=== PATIENT | male | born 1955 | race Caucasian/White ===

== ENCOUNTER 2023-12-07 15:19 | Emergency (ER) | payer MEDICARE, BC, SELFPAY ==
[2023-12-07 15:21] VITALS: BP 174/107
[2023-12-07 15:44] LABS: % Basophils 1.2 % (0-2); % Eosinophils 1.4 % (0-6); % Immature Granulocytes 0.2 % (0-0.5); % Lymphocytes 20.2 % (20.5-51.1); % Monocytes 7.6 % (1.7-9.3); % Neutrophils 69.4 % (42.2-75.2); Absolute Basophils 0.1 10^3/uL (0-0.2); Absolute Eosinophils 0.1 10^3/uL (0-0.7); Absolute Monocytes 0.4 10^3/uL (0.1-0.6); Absolute Neutrophils 3.5 10^3/uL (1.4-6.5); Hematocrit 42.5 % (39.0-52.0); Hemoglobin 14.4 g/dL (13.0-18.0); Mean Corp Hgb Conc. 33.9 g/dL (33.0-37.0); Mean Corpuscular Hgb 29.3 pg (27.0-31.0); Mean Corpuscular Volume 86.6 fL (80.0-94.0); Mean Platelet Volume 9.5 fL (7.4-10.4); Nucleated Red Blood Cells % 0 % (-); Platelet Count 209 10^3/uL (130-400); Red Blood Cell Count 4.91 10^6/uL (4.70-6.10); Red Cell Dist. Width 12.2 % (11.5-14.5); White Blood Cell Count 5.1 10^3/uL (4.8-10.8)
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
[2023-12-07 16:00] LABS: ALT (SGPT) 18 U/L (0-50); AST (SGOT) 22 U/L (17-59); Albumin 4.3 g/dl (3.5-5.0); Alkaline Phosphatase 52 U/L (38-126); Blood Urea Nitrogen 16 mg/dl (9-20); Calcium 9.9 mg/dl (8.4-10.2); Carbon Dioxide 25 mmol/L (22-30); Chloride 106 mmol/L (98-107); Glucose 93 mg/dl (70-99); Potassium 4.2 mmol/L (3.5-5.1); Sodium 141 mmol/L (135-145); Total Bilirubin 0.8 mg/dl (0.2-1.3); Total Protein 6.8 g/dl (6.3-8.2)
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
[2023-12-07 17:56] LABS: Urine Albumin Negative (Neg - Trace); Urine Bilirubin Negative (Negative); Urine Character Clear (Clear); Urine Color Yellow; Urine Glucose Negative (Negative); Urine Ketone Negative (Negative); Urine Leukocyte Negative (Negative); Urine Nitrite Negative (Negative); Urine Occult Blood Negative (Negative); Urine Specific Gravity 1.015 (<1.030); Urine Urobilinogen Negative (Neg - 1+)
[2023-12-07 18:54] LABS: Lithium < 0.2 mmol/L (0.6-1.2)
[2023-12-07 20:26] VITALS: BP 193/102
[2023-12-07 23:27] VITALS: BP 203/126
[2023-12-08] MEDS: ESKALITH 300 MG PO (01:43)
[2023-12-08] MEDS: INDERAL LA 60 MG PO ×2 (01:44→09:48)
[2023-12-08] MEDS: SEROQUEL 25 MG PO (01:48)
[2023-12-08] MEDS: PAMELOR 20 MG PO ×2 (01:49→09:47)
[2023-12-08] MEDS: KLONOPIN 0.5 MG PO ×3 (01:55→14:26)
[2023-12-08 01:59] VITALS: BP 160/120
--- NOTE | 2023-12-08 07:30 | EDRN ---
Received patient sleeping on stretcher. Security with patient. In NAD.
[2023-12-08 09:44] VITALS: BMI 26.8
[2023-12-08 09:46] VITALS: BP 172/99
[2023-12-08] MEDS: ABILIFY 6 MG PO (09:48)
[2023-12-08] MEDS: EXELON PATCH 9.5 MG TRANSDERM (09:49)
[2023-12-08 10:19] LABS: COVID-19 Antigen Negative (Negative)
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
== END 2023-12-08 16:58 ==
LOC: EMR 15:19
PROVIDERS: Emergency Medicine; CONSULT PHYSICIAN Psychiatry & Neurology Psychiatry; EMERGENCY PHYSICIAN Emergency Medicine; FAMILY PHYSICIAN Internal Medicine
DX: G31.83 Neurocognitive disorder with Lewy bodies (principal); F02.811 Dementia in other diseases classified elsewhere, unspecified severity, with agitation; Z11.52 Encounter for screening for COVID-19
CPT/HCPCS: 99285; 70450; 71045; 80053; 80178; 81003; 85025; 87811; 93005

== ENCOUNTER → 2024-05-03 13:05 | Outpatient (REF) | payer MEDICARE, BC, SELFPAY ==
[2024-05-03 14:55] LABS: % Basophils 1.2 % (0-2); % Eosinophils 4.4 % (0-6); % Immature Granulocytes 0.3 % (0-0.5); % Lymphocytes 21.8 % (20.5-51.1); % Monocytes 8.6 % (1.7-9.3); % Neutrophils 63.7 % (42.2-75.2); Absolute Basophils 0.1 10^3/uL (0-0.2); Absolute Eosinophils 0.3 10^3/uL (0-0.7); Absolute Lymphocytes 1.5 10^3/uL (1.2-3.4); Absolute Monocytes 0.6 10^3/uL (0.1-0.6); Absolute Neutrophils 4.4 10^3/uL (1.4-6.5); Hematocrit 41.4 % (39.0-52.0); Mean Corp Hgb Conc. 33.8 g/dL (33.0-37.0); Mean Corpuscular Hgb 29.8 pg (27.0-31.0); Mean Corpuscular Volume 88.1 fL (80.0-94.0); Mean Platelet Volume 10.6 fL (7.4-10.4); Nucleated Red Blood Cells % 0 % (-); Platelet Count 261 10^3/uL (130-400); Red Cell Dist. Width 12.4 % (11.5-14.5); White Blood Cell Count 6.9 10^3/uL (4.8-10.8)
[2024-05-03 15:02] LABS: Urine Albumin Negative (Neg - Trace); Urine Bilirubin Negative (Negative); Urine Character Clear (Clear); Urine Color Yellow; Urine Glucose Negative (Negative); Urine Ketone Negative (Negative); Urine Leukocyte Negative (Negative); Urine Nitrite Negative (Negative); Urine Occult Blood Negative (Negative); Urine Specific Gravity 1.015 (<1.030); Urine Urobilinogen Negative (Neg - 1+)
[2024-05-03 15:27] LABS: Free T4 0.99 ng/dl (0.78-2.19)
[2024-05-03 15:39] LABS: Urine Protein 8 mg/dl (0-12)
[2024-05-03 15:40] LABS: TSH 2.15 uIU/ml (0.47-4.68)
[2024-05-03 15:57] LABS: Vitamin D, 25-OH*** 39.4 ng/mL (30-80)
[2024-05-03 16:15] LABS: Albumin 4.6 g/dl (3.5-5.0); Blood Urea Nitrogen 22 mg/dl (9-20); Calcium 10.1 mg/dl (8.4-10.2); Carbon Dioxide 22 mmol/L (22-30); Chloride 106 mmol/L (98-107); Glucose 87 mg/dl (70-99); HDL Cholesterol 52 mg/dl; LDL Cholesterol, Calculated 133 mg/dl; Phosphorus 3.4 mg/dl (2.5-4.5); Potassium 4.8 mmol/L (3.5-5.1); Sodium 137 mmol/L (135-145); Total Cholesterol 203 mg/dl (50-199); Triglyceride 91 mg/dl (10-149); Uric Acid 3.5 mg/dl (3.5-8.5); Very Low Density Lipoprotein 18 mg/dl (0-30); eGFR 54.07
== END ==
LOC: REG 13:05
PROVIDERS: ATTENDING PHYSICIAN Internal Medicine; FAMILY PHYSICIAN Internal Medicine
DX: G31.83 Neurocognitive disorder with Lewy bodies (principal); F02.A0 Dementia in other diseases classified elsewhere, mild, without behavioral disturbance, psychotic disturbance, mood disturbance, and anxiety; F31.31 Bipolar disorder, current episode depressed, mild; G20.C Parkinsonism, unspecified; F02.80 Dementia in other diseases classified elsewhere, unspecified severity, without behavioral disturbance, psychotic disturbance, mood disturbance, and anxiety; I10 Essential (primary) hypertension; E78.00 Pure hypercholesterolemia, unspecified; M10.9 Gout, unspecified; N18.32 Chronic kidney disease, stage 3b; N25.81 Secondary hyperparathyroidism of renal origin
CPT/HCPCS: 36415; 80061; 80069; 81003; 82306; 82570; 83970; 84156; 84439; 84443; 84550; 85025

== ENCOUNTER 2024-09-20 15:30 | Inpatient (IN) | payer MEDICARE, BC, SELFPAY ==
[2024-09-18 19:56] VITALS: BP 173/108; BMI 29.8
[2024-09-18 20:08] LABS: % Basophils 1.1 % (0-2); % Eosinophils 3.7 % (0-6); % Immature Granulocytes 0.3 % (0-0.5); % Lymphocytes 18.3 % (20.5-51.1); % Monocytes 8.1 % (1.7-9.3); % Neutrophils 68.5 % (42.2-75.2); Absolute Basophils 0.1 10^3/uL (0-0.2); Absolute Eosinophils 0.3 10^3/uL (0-0.7); Absolute Lymphocytes 1.4 10^3/uL (1.2-3.4); Absolute Monocytes 0.6 10^3/uL (0.1-0.6); Absolute Neutrophils 5.2 10^3/uL (1.4-6.5); Hematocrit 44.1 % (39.0-52.0); Hemoglobin 13.9 g/dL (13.0-18.0); Mean Corp Hgb Conc. 31.5 g/dL (33.0-37.0); Mean Corpuscular Hgb 29.6 pg (27.0-31.0); Mean Corpuscular Volume 93.8 fL (80.0-94.0); Nucleated Red Blood Cells % 0 % (-); Platelet Count 225 10^3/uL (130-400); White Blood Cell Count 7.6 10^3/uL (4.8-10.8)
[2024-09-18 20:27] LABS: ALT (SGPT) < 10 U/L (0-50); AST (SGOT) 22 U/L (17-59); Albumin 4.3 g/dl (3.5-5.0); Alkaline Phosphatase 59 U/L (38-126); Blood Urea Nitrogen 19 mg/dl (9-20); Calcium 9.8 mg/dl (8.4-10.2); Carbon Dioxide 25 mmol/L (22-30); Chloride 104 mmol/L (98-107); Estimated Creatinine Clearance 44 ml/min; Glucose 109 mg/dl (70-99); Potassium 4.4 mmol/L (3.5-5.1); Sodium 139 mmol/L (135-145); Total Bilirubin 0.5 mg/dl (0.2-1.3); Total Protein 6.9 g/dl (6.3-8.2); eGFR 45.78
--- NOTE | 2024-09-18 20:28 | ED.GENMED ---
History of Present Illness
General
Chief Complaint: Blood Pressure Problem
Time Seen by Provider: 09/18/24 20:06
History of Present Illness
History of Present Illness:
69-year-old male with history of Parkinson's, Lewy body dementia, high blood pressure presenting to the emergency department after a fall. Patient reports that he tripped on a carpet earlier today, fell, struck his head without loss of
consciousness. He is not on any blood thinners. His is a nurse, checked his blood pressure, noted that it was elevated and has been elevated for the past few days. He is on blood pressure medication. Denies any associated prodromal symptoms
prior to the fall such as chest pain, difficulty breathing, headache denies any present visual changes, weakness, numbness to his extremities. He was primarily concerned about his fall and head strike. No additional symptoms reported at this time
Past History
Past History
ED Past Medical History: Other (Lewey Body Dementia)
ED Past Surgical History: None
Phy Exam
Physical Exam
Physical Exam:
General: Well-appearing, no clinical signs of dehydration, nontoxic and in no acute distress
HEENT: protecting airway
Neck: appears supple, no midline tenderness
Head: atraumatic
CV: Normal heart rate, regular rhythm
Resp: No accessory muscle use, no increased work of breathing, lungs clear to auscultation bilaterally
Abd: Soft and non-distended, no tenderness to palpation
Extremities: No deformities, no swelling, no erythema
Neuro: alert, no focal neurologic deficit
: deferred
Rectal: deferred
Psych: Normal affect
Skin: Intact
Course
Orders/Labs/Results
Orders:
Orders
09/18/24 20:01
CBC/With Diff [Complete Blood Count/With Diff] Urgent
CMP [Comprehensive Metabolic Panel] Urgent
09/18/24 20:21
CT Head W/o Iv Contrast Urgent
Comment:
Reason For Exam: fall, HTN
09/18/24 20:26
Electrocardiogram (*1) Urgent
Reason for Study: Other
Other Reason for Exam: fall
EKG- Treatment ONCE
09/18/24 20:54
Urinalysis Reflex To Culture Urgent
Date Specimen was Collected: 09/18/24
Time Specimen was Collected: 20:49
Abnormal Lab Results
09/18/24
20:01
MCHC 31.5 L g/dL
(33.0-37.0)
Lymphocytes % 18.3 L %
(20.5-51.1)
Creatinine 1.6 H mg/dL
(0.7-1.3)
Glucose 109 H mg/dl
(70-99)
09/18/24 20:01
09/18/24 20:01
Vital Signs
Initial and Last Documented VS:
Initial Vital Signs
Temp Pulse Resp BP Pulse Ox
98.2 F 62 14 173/108 98
09/18/24 19:56 09/18/24 19:56 09/18/24 19:56 09/18/24 19:56 09/18/24 19:56
Last Documented Vital Signs
Temp Pulse Resp BP Pulse Ox
98.2 F 62 17 161/96 94
09/18/24 19:56 09/18/24 19:56 09/18/24 22:19 09/18/24 21:00 09/18/24 21:00
MDM/Problems Addressed
MDM/Problems Addressed:
69-year-old male with history of Lewy body dementia, hypertension, Parkinson's presenting after a fall with head strike. Vital signs on arrival significant for high blood pressure.
On exam patient is well-appearing, no acute distress or discomfort. He is currently asymptomatic. Regarding fall, appears mechanical in nature, notes that he tripped on a rug and has known history of Parkinson's. Regarding elevated blood
pressure, currently asymptomatic with lower suspicion for emergency. Plan for screening laboratory analysis and EKG. Given age, will also obtain CT brain due to head strike. Will continue to closely monitor.
23:50 -patient CT is negative. Labs are relatively unremarkable with exception of kidney dysfunction, however appears chronic. On reassessment of patient, notes that since the fall he has been unable to ambulate steadily. Call placed to ,
notes that he has been unsteady in the past several days, had a mild fall yesterday and then again today where he struck his head. She notes that he had something similar in February 2023, seen in the hospital, required physical therapy and skilled
nursing facility. She also notes that he recently saw his neurologist to upped his medications for Parkinson's due to increased tremors. At this time suspect that stones are secondary to decompensated Parkinson's disease. Tried to ambulate
patient, took 3 people to get him up. For this reason we will admit for PT/OT and potential placement
*Critical Care Note
Total Time (30-74mins, 75-104mins- exclusive of procedures): Not Applicable
ED Attending Note
-
Portions of this chart may have been created with voice recognition software.� Occasional wrong word or��sound alike� substitutions may have occurred due to the inherent limitations of voice recognition software.
Discharge Plan
Departure
Prescriptions:
No Action
quetiapine 25 mg Tablet
37.5 mg PO HS
propranolol 60 mg Capsule,Extended Release 24 Hr
60 mg PO DAILY
lithium carbonate 300 mg Capsule
300 mg PO DAILY
nortriptyline 10 mg Capsule
20 mg PO BID
carbidopa-levodopa 10-100 mg Tablet
1 tab PO DAILY
rivastigmine tartrate 3 mg Capsule
4.5 mg PO BID
aripiprazole 2 mg Tablet
4 mg PO DAILY
febuxostat 80 mg Tablet
80 mg PO DAILY
lacosamide 100 mg Tablet
100 mg PO DAILY
Referrals:
UNKNOWN - PT DOES,NOT KNOW [Family Provider] -
Interventions
Interventions:
*Risk Screen - Suicide Last Done: 09/18/24 19:56
*General Assessment Last Done: 09/18/24 19:56
*Neglect/Abuse Screening Last Done: 09/18/24 19:56
*ED COVID-19 Vaccine History Last Done: 09/18/24 19:56
ED- Cardiac Assessment Last Done: 09/18/24 20:00
ED- Neurological Assessment Last Done: 09/18/24 20:00
ED- Pulmonary Assessment Last Done: 09/18/24 20:00
Discharge Date and Time
Print Language: [place]
[2024-09-18 21:00] VITALS: BP 161/96
[2024-09-18 21:02] LABS: Urine Albumin Negative (Neg - Trace); Urine Bilirubin Negative (Negative); Urine Character Clear (Clear); Urine Color Yellow; Urine Glucose Negative (Negative); Urine Ketone Negative (Negative); Urine Leukocyte Negative (Negative); Urine Nitrite Negative (Negative); Urine Occult Blood Negative (Negative); Urine Specific Gravity 1.015 (<1.030); Urine Urobilinogen Negative (Neg - 1+); Urine pH 6.5 (5.0-9.0)
[2024-09-18 23:01] VITALS: BP 168/93
[2024-09-19] VITALS (23 sets, daily range): BP systolic 119–221; BP diastolic 75–121; PULSE 58–68; O2SAT 98; BMI 30.3; BMI 29.1
--- NOTE | 2024-09-19 00:41 | HPS.HSE ---
Family Physician
-
Family Physician: NOT KNOW UNKNOWN - PT DOES
Chief Complaint
-
Falls / Weakness
History of Present Illness
Patient is a 69y M with PMH significant for Lewy Body Dementia and Parkinsonism who presents to ED complaining of two falls in the past two days. Patient states that he had a fall yesterday and landed on a couch / ottoman with no significant
injury. He was able to get up afterwards and ambulated without difficulty. Today he was walking and he fell backwards - striking his head on the hardwood floor. He does not believe he lost consciousness. He was unable to get up unassisted. He
was assisted by family - but then remained unable to stand, bear weight or ambulate throughout the afternoon. He was brought to the ED for further evaluation and treatment.
Patient denies any prodrome of lightheadedness, dizziness, chest pain or dyspnea.
He denies any current pain / evident injury.
Patient and note that his rivastigmine dose was increased about 2 weeks ago - from 3mg BID to 4.5mg BID.
No other recent med changes or additions.
No recent symptoms of illness including cough, fevers, chills, etc.
Medical History
Past Medical History
Past Medical History: Reports Other
Additional Past Medical History:
Lewy Body Dementia with Behavioral Disturbance
Parkinsonism
Seizure Disorder
Past Surgical History: Reports Other
Additional Past Surgical History:
Lumbar Laminectomy
Achilles Repair
Social History
Tobacco: Non-smoker
Alcohol: None
Drug: None
Family History
Family History: Not pertinent
Allergies / Home Medications
Allergies reflects when Allergies were last updated in [facility].
Home Medications with original date entered in [facility]
Allergy/Medication List:
Allergies
Allergy/AdvReac Type Severity Reaction Status Date / Time
NKA - No Known Allergies Allergy Unknown Uncoded 08/02/21 16:47
Home Medications
aripiprazole 2 mg tablet 4 mg PO DAILY 09/18/24
carbidopa 10 mg-levodopa 100 mg tablet 1 tab PO HS 09/18/24
febuxostat 80 mg tablet 80 mg PO DAILY 09/18/24
lacosamide 100 mg tablet 100 mg PO DAILY 09/18/24
lithium carbonate 300 mg capsule 300 mg PO DAILY 09/18/24
nortriptyline 10 mg capsule 20 mg PO BID 09/18/24
propranolol 60 mg capsule,24 hr,extended release 60 mg PO DAILY 09/18/24
quetiapine 25 mg tablet 37.5 mg PO HS 09/18/24
rivastigmine tartrate 3 mg capsule 4.5 mg PO BID 09/18/24
Review of Systems
-
History Source: Patient
A 12 point ROS was completed and negative except as noted: Yes
Constitutional: Reports Fatigue; Denies Fever or Chills
Respiratory: Denies Cough or Trouble Breathing
Cardiac: Denies Chest Pain or Palpitations
Abdomen/GI: Denies Abdominal Pain, Nausea, Vomiting or Diarrhea
: Denies Dysuria, Frequency or Flank Pain
Musculoskeletal: Denies Joint Pain or Edema
Neurological: Reports Weakness; Denies Dizzy, Headache or Numbness
Psych: Denies Depression or Anxiety
Physical Exam
Vital Signs
Vital Signs
Temp Pulse Resp BP Pulse Ox
98.2 F 62 17 161/96 94
09/18/24 19:56 09/18/24 19:56 09/18/24 22:19 09/18/24 21:00 09/18/24 21:00
Physical Exam
General: Other (69y M in no acute distress.)
HEENT: Moist mucous membranes and PERRLA
Respiratory: Clear; No Wheezes, Rales or Rhonchi
Cardiac: S1/S2 and Regular Rhythm; No Murmur
GI: Soft, Non Tender, Non Distended and Normal Bowel Sounds
Musculoskeletal: No Clubbing, No Cyanosis and No Edema
Neuro: Awake, Alert and Nonfocal/grossly intact
Psych: No Agitated or Anxious
Laboratory Results
-
09/18/24 20:
09/18/24 20:
Laboratory Results
Total Bilirubin 0.5 mg/dl (0.2-1.3) 09/18/24 20:
AST 22 U/L (17-59) 09/18/24 20:
ALT < 10 U/L (0-50) 09/18/24 20:
Alkaline Phosphatase 59 U/L (38-126) 09/18/24 20:
Impression/Plan
-
A/P: Patient is a 69y M with PMH significant for Lewy Body Dementia and Parkinsonism who presents to ED for evaluation of ambulatory dysfunction / frequent falls.
Fall at Home x 2
Ambulatory Dysfunction
Parkinsonism
- Observe overnight for further evaluation and treatment.
- Continue current Parkinson's medications with no changes.
- PT / OT evaluations in the AM.
- Check orthostatic signs and encourage use of TEDs stockings, etc.
- Case Management eval for possible placement if necessary.
- Monitor for any new headache or evident neurologic changes and repeat MANAGED SERVICES SALES CONSULTANT imaging if needed.
Lewy Body Dementia with Behavioral Disturbance
- Stable. Patient calm, oriented and able to provide clear history at this time.
- Variable mood / mental state per .
- Continue current med regimen with no changes.
- Check lithium level.
- Follow for any acute delirium / agitation during hospital stay.
Seizure Disorder
- Had episode of seizure activity during [facility] hospitalization earlier this year.
- No similar episodes since.
- Continue current med regimen including lacosamide.
- Monitor for any changes / recurent seizures.
CKD III
- Stable. Renal function is at / near known baseline.
- Follow for any changes.
Benign Hypertension
- BP elevated today - at home and here in the ED.
- ? secondary to pain / anxiety related to falls.
- No EKG changes, proteinuria, chest pain, etc.
- Continue propranolol and adjust med regimen as needed for normotension.
DVT Prophylaxis: SCDs
Code Status: DNR
[2024-09-19 01:03] LABS: Lithium 0.6 mmol/L (0.6-1.2)
[2024-09-19 07:03] LABS: Hematocrit 39.5 % (39.0-52.0); Hemoglobin 12.8 g/dL (13.0-18.0); Mean Corp Hgb Conc. 32.4 g/dL (33.0-37.0); Mean Corpuscular Hgb 30.1 pg (27.0-31.0); Mean Corpuscular Volume 92.9 fL (80.0-94.0); Mean Platelet Volume 9.6 fL (7.4-10.4); Platelet Count 218 10^3/uL (130-400); Red Blood Cell Count 4.25 10^6/uL (4.70-6.10); White Blood Cell Count 7.9 10^3/uL (4.8-10.8)
[2024-09-19 07:33] LABS: Blood Urea Nitrogen 20 mg/dl (9-20); Calcium 9.4 mg/dl (8.4-10.2); Carbon Dioxide 26 mmol/L (22-30); Chloride 107 mmol/L (98-107); Estimated Creatinine Clearance 47 ml/min; Glucose 99 mg/dl (70-99); Potassium 4.4 mmol/L (3.5-5.1); Sodium 140 mmol/L (135-145); eGFR 49.47
[2024-09-19 08:04] LABS: TSH Reflex To Free T4 5.49 uIU/ml (0.47-4.68)
[2024-09-19] MEDS: ESKALITH REGULAR RELEASE 300 MG PO (08:05)
[2024-09-19] MEDS: ULORIC 80 MG PO (08:05)
[2024-09-19] MEDS: PAMELOR 20 MG PO ×2 (08:06→20:15)
[2024-09-19] MEDS: ABILIFY 4 MG PO (08:06)
[2024-09-19] MEDS: INDERAL LA PO (08:06)
[2024-09-19] MEDS: EXELON 4.5 MG PO ×2 (08:07→20:14)
[2024-09-19] MEDS: VIMPAT 100 MG PO (08:14)
[2024-09-19] MEDS: INDERAL LA 60 MG PO (09:30)
--- NOTE | 2024-09-19 09:57 | W.PN.HOSP.TC ---
Addendum entered and electronically signed by Koby Beltran MD 09/19/24 17:44:
updated over the phone today today
Original Note:
Today's Communication/Plan
-
PT OT eval
Assessment / Plan
Assessment / Plan
Physical exam:
General: Acute on chronically ill
HEENT: Normocephalic, Atraumatic and Moist Mucous Membranes
Respiratory: Clear to Auscultation; Negative Wheezes, Rales or Rhonchi
Cardiac: Regular Rhythm and S1/S2
GI: Soft, Nontender and Nondistended
Musculoskeletal: No Clubbing, No Cyanosis and No Edema
Neuro: Awake, Alert and Oriented, generalized weakness
Psych: Calm
A/P:
Fall at Home x 2
Ambulatory Dysfunction
Parkinsonism
- Observe overnight for further evaluation and treatment.
- Continue current Parkinson's medications with no changes.
- PT / OT evaluations in the AM.
- Check orthostatic signs and encourage use of TEDs stockings, etc.
- Case Management eval for possible placement if necessary.
- Monitor for any new headache or evident neurologic changes and repeat AGRICULTURE CONSULTANT imaging if needed.
Lewy Body Dementia with Behavioral Disturbance
- Stable. Patient calm, oriented and able to provide clear history at this time.
- Variable mood / mental state per .
- Continue current med regimen with no changes.
- Check lithium level.
- Follow for any acute delirium / agitation during hospital stay.
Seizure Disorder
- Had episode of seizure activity during [facility] hospitalization earlier this year.
- No similar episodes since.
- Continue current med regimen including lacosamide.
- Monitor for any changes / recurent seizures.
CKD III
- Stable. Renal function is at / near known baseline.
- Follow for any changes.
Benign Hypertension
- BP elevated today - at home and here in the ED.
- ? secondary to pain / anxiety related to falls.
- No EKG changes, proteinuria, chest pain, etc.
- Continue propranolol and adjust med regimen as needed for normotension.
-Add IV hydralazine as needed
DVT Prophylaxis: SCDs
Code Status: DNR
Anticipated Discharge: 24 - 48 hours
Subjective/Interval History
-
Date of Service: September 19, 2024
Patient feels well overall.
Objective Data
-
Labs:
Laboratory Results
09/19/24
06:41
WBC 7.9
Hgb 12.8 L
Hct 39.5
Plt Count 218
Sodium 140
Potassium 4.4
Chloride 107
Carbon Dioxide 26
BUN 20
Creatinine 1.5 H
Glucose 99
Calcium 9.4
Vital Signs:
Vital Signs
Temp Pulse Resp BP Pulse Ox
98.1 F 65 14 184/99 94
09/19/24 04:00 09/19/24 09:30 09/19/24 07:15 09/19/24 09:30 09/19/24 01:15
[2024-09-19] MEDS: APRESOLINE 10 MG IV ×2 (13:05→20:17)
--- NOTE | 2024-09-19 13:26 | PTCARENOTE ---
Pt pleasant, calm and cooperative. AOx3. Denies pain. # 25cc in place for stress incontinence. NSR on monitor. BP trended high throughout morning despite 60mg PO Propranolol. Dr Beltran notified BP 195/104 hr 55. 10mg IV Hydralazine given. Repeat now
165/100 hr 70's. Pt to go to room 317-2. Report sent.
[2024-09-19] MEDS: REFRESH CELLUVISC GEL 1 DROPS OPHTH (14:47)
--- NOTE | 2024-09-19 18:38 | PTCARENOTE ---
pt pulled over from ED stretcher. AAOx3 but hx demetia. VSS. Condom cath in place. Pt had episode of confusion about catheter and attempting to get out of bed to urinate. Pt getting agitated with at family members at bedside. Able to redirect and
clean up pt. Bed alarm put in place. Call bed in reach and pt near nurses station. Will continue to monitor pt.
[2024-09-19] MEDS: TYLENOL 650 MG PO (22:09)
--- NOTE | 2024-09-19 23:12 | W.PN.UPDATE ---
Update Note
Progress Note Update
-Reported by the nursing staff that that patient has new onset of headache with 2 episodes of nausea and vomiting. Patient had fall prior admission and reported hitting of his head. Head CT was Neg on admission.
-On assessment patient is alert and oriented x 3, reported headache that new to him 9/10 of pain scale. Patient received Tylenol earlier that was not effective. Patient denies dizziness or blurred of vision. No changes in neuro exam.
-Will repeat head CT and continue with neuro check, and antiemetics as needed.
-Head CT result with no acute intracranial changes and no significant changes.
--- NOTE | 2024-09-19 23:14 | PTCARENOTE ---
2030 pt's b/p 178/104, 10mg hydralazine given
--- NOTE | 2024-09-19 23:15 | PTCARENOTE ---
1015 pt vomited, c/o FARAH 02/27, B/P 155/88 hr 60's. CONVENTIONS ASSISTANT notified, tylenol given
--- NOTE | 2024-09-19 23:16 | PTCARENOTE ---
224 pt vomited 2 more times, c/o [place] is now 8-9/10. PROCESS DEVELOPMENT MANAGER notified and came to evaluate pt. CT of head ordered, vs remain 150's/80's hr 60's
[2024-09-20] MEDS: ZOFRAN 4 MG IV (00:49)
[2024-09-20] MEDS: COLACE 100 MG PO (00:50)
[2024-09-20] MEDS: SEROQUEL 37.5 MG PO ×2 (00:51→21:42)
[2024-09-20] MEDS: SINEMET 10-100 1 TABLET PO ×2 (00:51→21:52)
[2024-09-20 03:30] VITALS: BP 143/86
[2024-09-20 06:42] LABS: % Basophils 0.7 % (0-2); % Eosinophils 1.3 % (0-6); % Immature Granulocytes 0.2 % (0-0.5); % Lymphocytes 11.1 % (20.5-51.1); % Monocytes 6.4 % (1.7-9.3); % Neutrophils 80.3 % (42.2-75.2); Absolute Basophils 0.1 10^3/uL (0-0.2); Absolute Eosinophils 0.1 10^3/uL (0-0.7); Absolute Lymphocytes 1.1 10^3/uL (1.2-3.4); Absolute Monocytes 0.6 10^3/uL (0.1-0.6); Absolute Neutrophils 7.9 10^3/uL (1.4-6.5); Hematocrit 41.3 % (39.0-52.0); Hemoglobin 13.6 g/dL (13.0-18.0); Mean Corp Hgb Conc. 32.9 g/dL (33.0-37.0); Mean Corpuscular Hgb 29.8 pg (27.0-31.0); Mean Corpuscular Volume 90.4 fL (80.0-94.0); Mean Platelet Volume 9.4 fL (7.4-10.4); Nucleated Red Blood Cells % 0 % (-); Platelet Count 234 10^3/uL (130-400); Red Blood Cell Count 4.57 10^6/uL (4.70-6.10); Red Cell Dist. Width 12.9 % (11.5-14.5); White Blood Cell Count 9.8 10^3/uL (4.8-10.8)
[2024-09-20 07:00] VITALS: BP 154/90
[2024-09-20 07:07] LABS: Blood Urea Nitrogen 20 mg/dl (9-20); Calcium 9.5 mg/dl (8.4-10.2); Carbon Dioxide 27 mmol/L (22-30); Chloride 104 mmol/L (98-107); Estimated Creatinine Clearance 45 ml/min; Glucose 107 mg/dl (70-99); Potassium 4.6 mmol/L (3.5-5.1); Sodium 138 mmol/L (135-145); eGFR 53.74
[2024-09-20] MEDS: ULORIC 80 MG PO (09:08)
[2024-09-20] MEDS: VIMPAT 100 MG PO (09:09)
[2024-09-20] MEDS: INDERAL LA 60 MG PO (09:09)
[2024-09-20] MEDS: ABILIFY 4 MG PO (09:15)
[2024-09-20] MEDS: ESKALITH REGULAR RELEASE 300 MG PO (09:15)
[2024-09-20] MEDS: PAMELOR 20 MG PO ×2 (09:16→20:33)
--- NOTE | 2024-09-20 09:49 | W.PN.HOSP.TC ---
Today's Communication/Plan
-
MRI of the head and cervical spine today. Neurosurgery consult.
Assessment / Plan
Assessment / Plan
Physical exam:
General: Acute on chronically ill
HEENT: Normocephalic, Atraumatic and Moist Mucous Membranes
Respiratory: Clear to Auscultation; Negative Wheezes, Rales or Rhonchi
Cardiac: Regular Rhythm and S1/S2
GI: Soft, Nontender and Nondistended
Musculoskeletal: No Clubbing, No Cyanosis and No Edema
Neuro: Awake, Alert and Oriented, generalized weakness with more pronounced lower extremity weakness.
Psych: Calm
A/P:
Lower extremity weakness and multiple falls:
Obtained MRI of cervical spine today--> consistent with moderate to severe cervical canal stenosis
Obtained MRI of the head today--> no evidence of stroke or any acute abnormality
Neurosurgery consulted-discussed with neurosurgery via [place] text today and they will see patient tomorrow
PT OT
Discussed with over the phone yesterday
Nausea and vomiting:
Resolving
Lewy bodies dementia with behavioral disturbances/parkinsonism/seizure disorder:
Continue lithium 300 mg p.o. daily, nortriptyline 20 mg p.o. twice a day, Seroquel 37.5 mg p.o. nightly, rivastigmine 4.5 mg p.o. twice a day, Abilify 5 mg p.o. daily, Vimpat 100 mg p.o. daily, carbidopa/levodopa 10/100 1 tab p.o. nightly.
[place] level 0.6 on 09/18
CKD stage III:
Avoid nephrotoxic
Renally dose medication
Check renal function in a.m.
Hypertension:
Continue propranolol 60 mg p.o. daily
Added IV hydralazine as needed
Monitor blood pressure adjust medications accordingly
DVT prophylaxis:
Heparin SQ
CODE STATUS:
DNR
Total time spent on today's encounter was 52 minutes which included time spent in counseling the patient/family regarding diagnosis and treatment plan as listed above, goals of care, and symptom management. Case was discussed with nursing staff,
specialists, and care coordinators/case management. All labs and imaging personally reviewed by me. Remainder the time spent in detailed review of previous records, lab data, imaging, and other medical provider documentation.
Anticipated Discharge: > 48 hours
Subjective/Interval History
-
Date of Service: September 20, 2024
Overnight he had nausea and vomiting but today feels better from that perspective. Patient continues to have lower extremity weakness and severity fluctuates. Afebrile
Objective Data
-
Labs:
Laboratory Results
09/20/24
06:01
WBC 9.8
Hgb 13.6
Hct 41.3
Plt Count 234
Sodium 138
Potassium 4.6
Chloride 104
Carbon Dioxide 27
BUN 20
Creatinine 1.4 H
Glucose 107 H
Calcium 9.5
Vital Signs:
Vital Signs
Temp Pulse Resp BP Pulse Ox
98.2 F 77 17 154/90 98
09/20/24 07:00 09/20/24 09:09 09/20/24 07:00 09/20/24 09:09 09/20/24 07:00
I&O
09/19/24 09/20/24 09/21/24
06:59 06:59 06:59
Intake Total 720 / 720
Output Total 2450 / 2450
Balance -1730 / -1730
[2024-09-20] MEDS: EXELON 4.5 MG PO ×2 (10:49→20:31)
[2024-09-20 11:00] VITALS: BP 151/85; BP 154/84; BP 157/81; PULSE 60; PULSE 64; PULSE 67
[2024-09-20 15:00] VITALS: BP 163/89
--- NOTE | 2024-09-20 15:40 | PTCARENOTE ---
patient with b/l LE weakness, no further n/v or headache since night court magistrate, tolerating diet, transferring oob with assist x1, vss, will continue to monitor.
[2024-09-20 19:20] VITALS: BP 142/77
[2024-09-20 23:10] VITALS: BP 169/95
[2024-09-21 03:50] VITALS: BP 156/88
[2024-09-21 07:24] VITALS: BP 171/96
--- NOTE | 2024-09-21 07:25 | W.PN.HOSP.TC ---
Today's Communication/Plan
-
Discharge planning today
Assessment / Plan
Assessment / Plan
Physical exam:
General: Acute on chronically ill
HEENT: Normocephalic, Atraumatic and Moist Mucous Membranes
Respiratory: Clear to Auscultation; Negative Wheezes, Rales or Rhonchi
Cardiac: Regular Rhythm and S1/S2
GI: Soft, Nontender and Nondistended
Musculoskeletal: No Clubbing, No Cyanosis and No Edema
Neuro: Awake, Alert and Oriented, generalized weakness with more pronounced lower extremity weakness.
Psych: Calm
A/P:
Lower extremity weakness and multiple falls:
Obtained MRI of cervical spine today--> consistent with moderate to severe cervical canal stenosis
Obtained MRI of the head today--> no evidence of stroke or any acute abnormality
Neurosurgery consulted-neurosurgery does not feel urgent need for surgery and will follow-up as outpatient. From neurosurgical standpoint he can be discharged today.
PT OT
Discussed with over the phone yesterday
Discussed with daughter at bedside today on 09/21
Nausea and vomiting:
Resolving
Lewy bodies dementia with behavioral disturbances/parkinsonism/seizure disorder:
Continue lithium 300 mg p.o. daily, nortriptyline 20 mg p.o. twice a day, Seroquel 37.5 mg p.o. nightly, rivastigmine 4.5 mg p.o. twice a day, Abilify 5 mg p.o. daily, Vimpat 100 mg p.o. daily, carbidopa/levodopa 10/100 1 tab p.o. nightly.
[place] level 0.6 on 09/18
CKD stage III:
Avoid nephrotoxic
Renally dose medication
Check renal function in a.m.
Hypertension:
Continue propranolol 60 mg p.o. daily
Add amlodipine 5 mg p.o. daily
Added IV hydralazine as needed
Monitor blood pressure adjust medications accordingly
DVT prophylaxis:
Heparin SQ
CODE STATUS:
DNR
Anticipated Discharge: Today
Subjective/Interval History
-
Date of Service: September 21, 2024
Patient doing much better today.
Objective Data
-
Labs:
Laboratory Results
09/21/24
06:00
WBC Pending
Hgb Pending
Hct Pending
Plt Count Pending
Sodium Pending
Potassium Pending
Chloride Pending
Carbon Dioxide Pending
BUN Pending
Creatinine Pending
Glucose Pending
Calcium Pending
Vital Signs:
Vital Signs
Temp Pulse Resp BP Pulse Ox
98.4 F 58 17 171/96 99
09/21/24 07:24 09/21/24 07:24 09/21/24 07:24 09/21/24 07:24 09/21/24 07:24
I&O
09/20/24 09/21/24 09/22/24
06:59 06:59 06:59
Intake Total 720 / 720 2250 / 2250
Output Total 2450 / 2450 1575 / 1575
Balance -1730 / -1730 675 / 675
[2024-09-21] MEDS: EXELON 4.5 MG PO (07:51)
[2024-09-21] MEDS: INDERAL LA 60 MG PO (07:51)
[2024-09-21] MEDS: ULORIC 80 MG PO (07:52)
[2024-09-21] MEDS: VIMPAT 100 MG PO (07:52)
[2024-09-21] MEDS: ABILIFY 4 MG PO (07:53)
[2024-09-21] MEDS: PAMELOR 20 MG PO (07:53)
[2024-09-21] MEDS: ESKALITH REGULAR RELEASE 300 MG PO (07:54)
[2024-09-21 08:05] LABS: % Basophils 0.9 % (0-2); % Eosinophils 3.7 % (0-6); % Immature Granulocytes 0.3 % (0-0.5); % Lymphocytes 19.5 % (20.5-51.1); % Monocytes 9.2 % (1.7-9.3); % Neutrophils 66.4 % (42.2-75.2); Absolute Basophils 0.1 10^3/uL (0-0.2); Absolute Eosinophils 0.3 10^3/uL (0-0.7); Absolute Lymphocytes 1.3 10^3/uL (1.2-3.4); Absolute Monocytes 0.6 10^3/uL (0.1-0.6); Absolute Neutrophils 4.5 10^3/uL (1.4-6.5); Hematocrit 41.7 % (39.0-52.0); Hemoglobin 13.7 g/dL (13.0-18.0); Mean Corp Hgb Conc. 32.9 g/dL (33.0-37.0); Mean Corpuscular Hgb 29.9 pg (27.0-31.0); Mean Platelet Volume 9.4 fL (7.4-10.4); Nucleated Red Blood Cells % 0 % (-); Platelet Count 206 10^3/uL (130-400); Red Blood Cell Count 4.58 10^6/uL (4.70-6.10); White Blood Cell Count 6.8 10^3/uL (4.8-10.8)
[2024-09-21 08:36] LABS: Blood Urea Nitrogen 24 mg/dl (9-20); Calcium 9.5 mg/dl (8.4-10.2); Carbon Dioxide 27 mmol/L (22-30); Chloride 104 mmol/L (98-107); Estimated Creatinine Clearance 42 ml/min; Glucose 94 mg/dl (70-99); Potassium 4.7 mmol/L (3.5-5.1); Sodium 139 mmol/L (135-145); eGFR 49.47
[2024-09-21 09:16] LABS: Vitamin B12 441 pg/ml (239-931)
--- NOTE | 2024-09-21 10:21 | CON.NS ---
Chief Complaint
-
s/p fall
History of Present Illness
This is a 69 y/o M with current medical issues of Parkinson's Disease, Lewy Body Dementia, and HTN who presents for evaluation s/p two mechanical falls. Patient states he fell once and landed on the couch and was able to ambulate afterwards. The
following day, he was walking and tripped falling backwards and he was unable to catch himself. He struck his head on hardwood floor but denies LOC. He was able to get up without assistance, however later had some difficulty ambulating and he was
brought to the ED for evaluation. CTH was negative. He was able to ambulate in ED with PT. MRI was obtained and demonstrated cervical stenosis. Neurosurgery was consulted.
Patient seen and examined. He denies any numbness/tingling, UE/LE radicular pain, denies any weakness, denies any difficulty with dexterity/using utensils/opening jars/buttoning up shirts, does admit to some gait abnormality but due to Parkinson's.
He denies feeling off balance. He was able to ambulate to the bathroom with a walker and states he felt pretty steady on his feet.
Review of Systems
-
History Source: Patient
A 12 point ROS was completed and negative except as noted in HPI
Medical History
Past Medical History
Additional Past Medical History:
Past Medical History
Past Medical History: Reports Other
Additional Past Medical History:
Lewy Body Dementia with Behavioral Disturbance
Parkinsonism
Seizure Disorder
Social History
Tobacco: Non-smoker
Alcohol: None
Drug: None
Family History
Family History: Reviewed & Not Pertinent
Medication and Allergies
Home Medications
Home Medications
�Medication �Instructions �Recorded
aripiprazole 2 mg tablet 4 mg PO DAILY Mental Health/Anxiety 09/18/24
carbidopa 10 mg-levodopa 100 mg 1 tab PO HS parkinson's disease 09/18/24
tablet
febuxostat 80 mg tablet 80 mg PO DAILY high uric acid 09/18/24
levels
lacosamide 100 mg tablet 100 mg PO DAILY Seizures 09/18/24
lithium carbonate 300 mg capsule 300 mg PO DAILY Mental 09/18/24
Health/Anxiety
nortriptyline 10 mg capsule 20 mg PO BID depression/sleep 09/18/24
propranolol 60 mg capsule,24 60 mg PO DAILY Blood Pressure 09/18/24
hr,extended release
quetiapine 25 mg tablet 37.5 mg PO HS Mental Health/Anxiety 09/18/24
rivastigmine tartrate 3 mg capsule 4.5 mg PO BID lewy body dementia 09/18/24
Allergies
Allergies
Allergy/AdvReac Type Severity Reaction Status Date / Time
NKA - No Known Allergies Allergy Unknown Uncoded 08/02/21 16:47
Physical Exam
-
Exam:
Patient Awake, alert and oriented to person, place and situation
VSS
CN 2-12 grossly intact
speech: clear/fluent
EOMI
psych: pleasant demeanor
motor: 5/5 in all extremities
sensation in tact to crude touch
non labored breathing
Cardiac: no swelling/edema, pedal pulses present
skin: no rashes/lesions
MRI cervical spine personally reviewed and interpreted by myself and attending.
official report below
IMPRESSION:
Motion limited examination.
1. Chronic degenerative changes of the cervical spine including degenerative disc disease with multilevel disc bulges, uncovertebral arthrosis, and facet arthrosis.
2. Moderate to severe spinal canal stenosis at C5-C6. Mild signal alteration in the left lateral cervical spinal cord at the C5-C6 level suspicious for compressive myelopathy.
3. Moderate spinal canal stenosis at C6-C7.
4. Mild spinal canal stenosis at C3-C4, C6-C7, and C7-T1.
5. Varying degrees of chronic multilevel bilateral neuroforaminal stenosis, as detailed above.
Problems
-
Problem Status Onset Code
Hypertension I10
Tremulousness R25.1
Need for assistance due to unsteady gait R26.89
Assessment / Plan
-
This is a 69 y/o M with cervical stenosis and degenerative changes on MRI
--imaging reviewed by attending. No acute neurosurgical intervention indicated
--PT/OT
--follow up as an outpatient
--okay to d/c from a neurosurgical standpoint once medically cleared
--patient discussed with Dr. Romero.
[2024-09-21 11:15] VITALS: BP 157/84
[2024-09-21 12:00] VITALS: BP 157/88; PULSE 54; O2SAT 98
--- NOTE | 2024-09-21 13:20 | W.DCSUMMARY ---
Discharge Summary
Discharge Data
Date of Admission: 09/20/24
Date of Discharge: 09/21/24
-
Pending Results: No
Hospital Course
Patient 69 years old male with history of Parkinson's disease, Lewy body dementia, hypertension, seizure disorder, came into the hospital with generalized weakness, lower extremity weakness, and multiple falls. Patient evaluation including MRI of
the head that was negative for stroke and based on his exam also he had an MRI of the cervical spine that shows significant cervical spinal stenosis. Labs unremarkable for metabolic issues and no signs of infection. Neurosurgery was consulted.
Neurosurgery recommended to continue with physical therapy and no urgent surgical intervention required but close follow-up as outpatient with them. PT OT has worked with patient recommended home health. Otherwise, patient is hemodynamically
stable and feeling improved. Ideally he should go to rehab but it looks that he does not qualify it at the moment. He will be discharged in stable condition today.
Discharge duration: 35 minutes
Discharge Plan
-
Patient Disposition: Home with Home Care
Discharge Diagnosis/Procedures: Recurrent falls. Significant cervical stenosis. Lewy bodies dementia with behavioral disturbances. Seizure disorder. Parkinsonism. Chronic kidney disease stage III. Hypertension.
Diet: Low Cholesterol
Activity: As tolerated
Blood Work: Please PCP to order CBC, BMP within 1 week
Referrals:
Primary care, provider [Other] (See less than 1 week)
Pernell Romero DO [Active] - (Follow up with Dr. Romero regarding cervical stenosis)
Prescriptions:
New
amlodipine 5 mg Tablet
5 mg PO DAILY 30 Days Qty: 30 0RF
Continued
quetiapine 25 mg Tablet
37.5 mg PO HS
propranolol 60 mg Capsule,Extended Release 24 Hr
60 mg PO DAILY
lithium carbonate 300 mg Capsule
300 mg PO DAILY
nortriptyline 10 mg Capsule
20 mg PO BID
carbidopa-levodopa 10-100 mg Tablet
1 tab PO HS
rivastigmine tartrate 3 mg Capsule
4.5 mg PO BID
aripiprazole 2 mg Tablet
4 mg PO DAILY
febuxostat 80 mg Tablet
80 mg PO DAILY
lacosamide 100 mg Tablet
100 mg PO DAILY
Discharge Orders:
Discharge Patient (As Directed); Ordered 09/21/24
Ordered By: Koby Beltran
Discharge Date and Time
Discharge Date/Time: 09/21/24 17:00
Print Language: SRI LANKAN
[2024-09-21] MEDS: NORVASC 5 MG PO (13:40)
--- NOTE | 2024-09-21 14:28 | CM ---
Met with patient to obtain information for assessment. Patient stated that he lives with his and 20 y/o special needs son in a three story townhouse with 3 steps to enter. He is independent with his ADLs, personal care, dressing and bathing. He
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 He has access to a cane and walker, however, he ambulates independently.
Per nursing staff, he has been confused at night but oriented x3 during the day.
He has had VN in the past.
He has been to [facility] and liked it there. He has been to [facility].
Patient denied wanting VN but will check with his .
Spoke with PT who stated that patient is at baseline level of functioning.
Patient has a prescription plan and uses, [facility] for all of his medications.
Patient's PCP is, Not listed.
Plan: Case management will continue to follow and assist with discharge planning. Home, will ask his about VN need.
--- NOTE | 2024-09-21 14:58 | CM ---
Addendum entered by MIRYAM Pérez 09/21/24 15:10:
Received voice mail message from patient's . Returned her call however call went to voice mail. Asked patient if he is agreeable to VN services and he stated no.
Will send referral if he changes his mind.
Original Note:
Met with patient to obtain information for assessment. Patient stated that he lives with his and 20 y/o special needs son in a three story townhouse with 3 steps to enter. He is independent with his ADLs, personal care, dressing and bathing. He
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 He has access to a cane and walker, however, he ambulates independently.
Per nursing staff, he has been confused at night but oriented x3 during the day.
He has had VN in the past.
He has been to [facility] and liked it there. He has been to [facility].
Patient denied wanting VN but will check with his .
Spoke with PT who stated that patient is at baseline level of functioning.
Patient has a prescription plan and uses, [facility] for all of his medications.
Patient's PCP is, Not listed.
Plan: Case management will continue to follow and assist with discharge planning. Home, will ask his about VN need.
Initialized on 09/21/24 14:28 - END OF NOTE
[2024-09-21 15:15] VITALS: BP 155/81
== END 2024-09-21 17:00 | disposition home health service (06) | DRG 57 ==
LOC: 3 WEST ACU 15:30
PROVIDERS: ADMITTING PHYSICIAN Hospitalist; ATTENDING PHYSICIAN Hospitalist; CONSULT PHYSICIAN Neurological Surgery; EMERGENCY PHYSICIAN Student in an Organized Health Care Education/Training Program
DX: G31.83 Neurocognitive disorder with Lewy bodies (principal); F02.818 Dementia in other diseases classified elsewhere, unspecified severity, with other behavioral disturbance; F02.84 Dementia in other diseases classified elsewhere, unspecified severity, with anxiety; G20.A1 Parkinson's disease without dyskinesia, without mention of fluctuations; I12.9 Hypertensive chronic kidney disease with stage 1 through stage 4 chronic kidney disease, or unspecified chronic kidney disease; N18.30 Chronic kidney disease, stage 3 unspecified; Z66 Do not resuscitate; M48.02 Spinal stenosis, cervical region; G40.909 Epilepsy, unspecified, not intractable, without status epilepticus
CPT/HCPCS: 70450; 70551; 72141; 80048; 80053; 80178; 81003; 82607; 84439; 84443; 85025; 85027; 93005; 97116; 97163; 97167; 97530; 99285

== ENCOUNTER → 2024-12-05 12:48 | Outpatient (REF) | payer MEDICARE, BC, SELFPAY ==
[2024-12-05 14:23] LABS: Albumin 4.7 g/dl (3.5-5.0); Blood Urea Nitrogen 18 mg/dl (9-20); Calcium 10.4 mg/dl (8.4-10.2); Carbon Dioxide 27 mmol/L (22-30); Chloride 102 mmol/L (98-107); Glucose 98 mg/dl (70-99); Phosphorus 3.4 mg/dl (2.5-4.5); Potassium 4.8 mmol/L (3.5-5.1); Sodium 140 mmol/L (135-145); eGFR 49.47
== END ==
LOC: REG 12:48
PROVIDERS: ATTENDING PHYSICIAN Internal Medicine; FAMILY PHYSICIAN Internal Medicine
DX: N18.32 Chronic kidney disease, stage 3b (principal)
CPT/HCPCS: 36415; 80069

== ENCOUNTER 2025-03-14 10:15 | Outpatient (RCR) | payer MEDICARE, BC, SELFPAY | END 2025-03-14 23:59 | disposition home or self-care (01) | LOC: RST 10:15 | PROVIDERS: ATTENDING PHYSICIAN Student in an Organized Health Care Education/Training Program; FAMILY PHYSICIAN Internal Medicine | DX: G31.83 Neurocognitive disorder with Lewy bodies (principal); F02.80 Dementia in other diseases classified elsewhere, unspecified severity, without behavioral disturbance, psychotic disturbance, mood disturbance, and anxiety; G20.C Parkinsonism, unspecified; Z73.6 Limitation of activities due to disability; R26.89 Other abnormalities of gait and mobility; R26.2 Difficulty in walking, not elsewhere classified; R13.12 Dysphagia, oropharyngeal phase | CPT/HCPCS: 92526; 92610; 97110; 97112; 97116; 97163; 97530 ==

== ENCOUNTER 2025-04-18 14:08 | Outpatient (RCR) | payer MEDICARE, BC, SELFPAY | END 2025-04-18 23:59 | disposition home or self-care (01) | LOC: RST 14:08 | PROVIDERS: ATTENDING PHYSICIAN Student in an Organized Health Care Education/Training Program; FAMILY PHYSICIAN Internal Medicine | DX: G31.83 Neurocognitive disorder with Lewy bodies (principal); F02.80 Dementia in other diseases classified elsewhere, unspecified severity, without behavioral disturbance, psychotic disturbance, mood disturbance, and anxiety; G20.C Parkinsonism, unspecified; Z73.6 Limitation of activities due to disability; R26.89 Other abnormalities of gait and mobility; R26.2 Difficulty in walking, not elsewhere classified; R13.12 Dysphagia, oropharyngeal phase; R41.841 Cognitive communication deficit | CPT/HCPCS: 92526; 96125; 97110; 97112; 97116; 97129; 97130; 97530 ==

== ENCOUNTER 2025-05-16 14:14 | Outpatient (RCR) | payer MEDICARE, BC, SELFPAY | END 2025-05-16 23:59 | disposition home or self-care (01) | LOC: RST 14:14 | PROVIDERS: ATTENDING PHYSICIAN Student in an Organized Health Care Education/Training Program; FAMILY PHYSICIAN Internal Medicine | DX: G31.83 Neurocognitive disorder with Lewy bodies (principal); F02.80 Dementia in other diseases classified elsewhere, unspecified severity, without behavioral disturbance, psychotic disturbance, mood disturbance, and anxiety; G20.C Parkinsonism, unspecified; Z73.6 Limitation of activities due to disability; R26.89 Other abnormalities of gait and mobility; R26.2 Difficulty in walking, not elsewhere classified; R13.12 Dysphagia, oropharyngeal phase; R41.841 Cognitive communication deficit | CPT/HCPCS: 97110; 97112; 97116; 97129; 97130; 97530 ==

== ENCOUNTER 2025-06-13 14:20 | Outpatient (RCR) | payer MEDICARE, BC, SELFPAY | END 2025-06-13 23:59 | disposition home or self-care (01) | LOC: RST 14:20 | PROVIDERS: ATTENDING PHYSICIAN Student in an Organized Health Care Education/Training Program; FAMILY PHYSICIAN Internal Medicine | DX: G31.83 Neurocognitive disorder with Lewy bodies (principal); F02.80 Dementia in other diseases classified elsewhere, unspecified severity, without behavioral disturbance, psychotic disturbance, mood disturbance, and anxiety; G20.C Parkinsonism, unspecified; Z73.6 Limitation of activities due to disability; R26.89 Other abnormalities of gait and mobility; R26.2 Difficulty in walking, not elsewhere classified; R13.12 Dysphagia, oropharyngeal phase; R41.841 Cognitive communication deficit | CPT/HCPCS: 97110; 97112; 97116; 97530 ==

== ENCOUNTER → 2025-06-19 15:57 | Outpatient (REF) | payer MEDICARE, BC, SELFPAY ==
[2025-06-19 16:37] LABS: Urine Character Clear (Clear)
[2025-06-19 16:40] LABS: Hematocrit 43.2 % (39.0-52.0); Hemoglobin 14.2 g/dL (13.0-18.0); Mean Corp Hgb Conc. 32.9 g/dL (33.0-37.0); Mean Corpuscular Volume 88.0 fL (80.0-94.0); Nucleated Red Blood Cells % 0 % (-); Platelet Count 230 10^3/uL (130-400); Red Cell Dist. Width 12.3 % (11.5-14.5)
[2025-06-19 16:45] LABS: Urine Red Blood Cell 0-2 /HPF (0-2); Urine Squamous Cell 0-2 /LPF (Few); Urine White Cell 0-2 /HPF (0-5)
[2025-06-19 16:54] LABS: ALT (SGPT) < 10 U/L (0-50); AST (SGOT) 17 U/L (17-59); Albumin 4.7 g/dl (3.5-5.0); Alkaline Phosphatase 49 U/L (38-126); Blood Urea Nitrogen 16 mg/dl (9-20); Calcium 9.9 mg/dl (8.4-10.2); Carbon Dioxide 30 mmol/L (22-30); Chloride 105 mmol/L (98-107); Glucose 108 mg/dl (70-99); HDL Cholesterol 52 mg/dl; LDL Cholesterol, Calculated 164 mg/dl; Potassium 4.8 mmol/L (3.5-5.1); Sodium 140 mmol/L (135-145); Total Protein 7.5 g/dl (6.3-8.2); Very Low Density Lipoprotein 25 mg/dl (0-30); eGFR 53.40
[2025-06-19 17:09] LABS: Vitamin D, 25-OH*** 45.2 ng/mL (30-80)
[2025-06-19 17:22] LABS: TSH 1.59 uIU/ml (0.47-4.68)
[2025-06-20 08:40] LABS: Glycohemoglobin (HgbA1c) 5.3 % (4.0-5.6)
== END ==
LOC: REG 15:57
PROVIDERS: ATTENDING PHYSICIAN Internal Medicine
DX: R56.9 Unspecified convulsions (principal); F31.31 Bipolar disorder, current episode depressed, mild; G20.C Parkinsonism, unspecified; F02.80 Dementia in other diseases classified elsewhere, unspecified severity, without behavioral disturbance, psychotic disturbance, mood disturbance, and anxiety; R93.3 Abnormal findings on diagnostic imaging of other parts of digestive tract; R79.9 Abnormal finding of blood chemistry, unspecified; E55.9 Vitamin D deficiency, unspecified; N40.0 Benign prostatic hyperplasia without lower urinary tract symptoms; Z00.00 Encounter for general adult medical examination without abnormal findings
CPT/HCPCS: 36415; 80053; 80061; 81003; 81015; 82306; 83036; 84439; 84443; 85025